=== PATIENT | male | born 1960 | race Caucasian/White ===

== ENCOUNTER 2017-10-09 21:18 | Emergency (ER) | payer SELFPAY ==
[~2017-10-09] VITALS: Ht 190.5 cm; Wt 98.0 kg
[2017-10-09 21:21] VITALS: BP 140/93; PULSE 82; RESP 16; TEMP 97.5; O2SAT 98
[2017-10-09] MEDS ORDERED: [UNRECOGNIZED DRUG - REMARK] PO (21:28)
[2017-10-09] MEDS ORDERED: PSEU30TA82 PO (21:28)
[2017-10-09] MEDS ORDERED: otc (21:53)
[2017-10-09] MEDS ORDERED: SODIUM CHLOR 0.9% 1000 ML INJ 1,000 ML IV SCH (21:54)
--- NOTE | 2017-10-09 21:57 | PD ---
HPI Chief Complaint: Abdominal Pain Time Seen by Provider: 21:49 Travel History International Travel<30 days: No Contact w/Intl Traveler<30days: No Traveled to known affect area: No History of Present Illness HPI 57-year-old male presents to the emergency department for evaluation of low abdominal pain that started approximate 5 hours ago. Patient rates the pain 9/ 10, sharp without radiation. He states he had this exact pain once before in the past it was when he took Sudafed and [id number] weight loss pills together. He took those again today together and started with the abdominal pain. He denies any fevers or chills. No chest pain or shortness of breath. He reports nausea, no vomiting. No diarrhea or constipation. No blood in his stool. He reports no chronic medical problems. He appears well on exam. Moderate severity. No exacerbating or alleviating factors. PFSH Past Medical History Medical History: Denies Significant Hx Diminished Hearing: No Tetanus Vaccination: < 5 Years Influenza Vaccination: No Past Surgical History Body Medical Devices: ? metal right hand Social History Alcohol Use: No Tobacco Use: Yes (occasional cigars ) Substance Use: No Allergies-Medications (Allergen,Severity, Reaction): Coded Allergies: No Known Allergies (Unverified , 10/09/17) Reported Meds & Prescriptions Reported Meds & Active Scripts Active Reported [otc] Sudafed (Pseudoephedrine HCl) 30 Mg Tablet 10 Tab PO BID Review of Systems Except as stated in HPI: all other systems reviewed are Neg Physical Exam Narrative GENERAL: Well-nourished, well-developed male patient, ambulatory. Afebrile. SKIN: Focused skin assessment warm/dry. HEAD: Normocephalic. Atraumatic. EYES: No scleral icterus. No injection or drainage. NECK: Supple, trachea midline. No JVD or lymphadenopathy. CARDIOVASCULAR: Regular rate and rhythm without murmurs, gallops, or rubs. RESPIRATORY: Breath sounds equal bilaterally. No accessory muscle use. Lungs sounds are clear to auscultation. GASTROINTESTINAL: Abdomen soft, non-tender, nondistended. MUSCULOSKELETAL: No cyanosis, or edema. BACK: Nontender without obvious deformity. No CVA tenderness. Data Data Last Documented VS Vital Signs Date Time Temp Pulse Resp B/P (MAP) Pulse Ox O2 Delivery O2 Flow Rate FiO2 10/09/17 22:21 99 Room Air 10/09/17 21:21 97.5 82 16 Orders Orders Complete Blood Count With Diff (10/09/17 21:54) Comprehensive Metabolic Panel (10/09/17 21:54) Lipase (10/09/17 21:54) Urinalysis - C+S If Indicated (10/09/17 21:54) Iv Access Insert/Monitor (10/09/17 21:54) Ecg Monitoring (10/09/17 21:54) Oximetry (10/09/17 21:54) Ondansetron Inj (Zofran Inj) (10/09/17 22:00) Sodium Chlor 0.9% 1000 Ml Inj (Ns 1000 M (10/09/17 21:54) Sodium Chloride 0.9% Flush (Ns Flush) (10/09/17 22:00) Ketorolac Inj (Toradol Inj) (10/09/17 22:00) Labs Laboratory Tests Test 10/09/17 22:05 10/09/17 22:31 White Blood Count 10.7 TH/MM3 Red Blood Count 4.77 MIL/MM3 Hemoglobin 15.1 GM/DL Hematocrit 44.3 % Mean Corpuscular Volume 92.9 FL Mean Corpuscular Hemoglobin 31.7 PG Mean Corpuscular Hemoglobin Concent 34.2 % Red Cell Distribution Width 14.3 % Platelet Count 225 TH/MM3 Mean Platelet Volume 7.4 FL Neutrophils (%) (Auto) 73.7 % Lymphocytes (%) (Auto) 15.5 % Monocytes (%) (Auto) 8.6 % Eosinophils (%) (Auto) 1.6 % Basophils (%) (Auto) 0.6 % Neutrophils # (Auto) 7.9 TH/MM3 Lymphocytes # (Auto) 1.7 TH/MM3 Monocytes # (Auto) 0.9 TH/MM3 Eosinophils # (Auto) 0.2 TH/MM3 Basophils # (Auto) 0.1 TH/MM3 CBC Comment DIFF FINAL Differential Comment Blood Urea Nitrogen 23 MG/DL Creatinine 1.28 MG/DL Random Glucose 102 MG/DL Total Protein 8.0 GM/DL Albumin 4.3 GM/DL Calcium Level 8.8 MG/DL Alkaline Phosphatase 67 U/L Aspartate Amino Transf (AST/SGOT) 24 U/L Alanine Aminotransferase (ALT/SGPT) 26 U/L Total Bilirubin 0.4 MG/DL Sodium Level 140 MEQ/L Potassium Level 3.8 MEQ/L Chloride Level 102 MEQ/L Carbon Dioxide Level 31.2 MEQ/L Anion Gap 7 MEQ/L Estimat Glomerular Filtration Rate 58 ML/MIN Lipase 98 U/L [facility] Medical Decision Making Medical Screen Exam Complete: Yes Emergency Medical Condition: Yes Medical Record Reviewed: Yes Differential Diagnosis Gastritis versus gastroenteritis versus diverticulitis versus UTI Narrative Course 57-year-old male presents to the emergency department for evaluation of abdominal pain that started possibly 5 hours ago. Abdominal exam is benign. IV access established. CBC, CMP, lipase, UA are ordered and pending. Patient is given normal saline 1 L IV bolus, Toradol 30 mg IV, Zofran 4 mg IV. CBC shows no acute abnormality. CMP, lipase, UA are pending. My attending physician, Dr. Watson, will resume care and disposition of patient. Talya Maddox Oct 09, 2017 21:57
[2017-10-09] MEDS ORDERED: KETOROLAC TROMETHAMINE 30 MG/ML (IVP) VIAL IVP ONE (22:00)
[2017-10-09] MEDS ORDERED: SODIUM CHLORIDE 0.9% FLUSH 10 ML FLUSH IV FLUSH PRN (22:00)
[2017-10-09] MEDS ORDERED: ONDANSETRON HCL 4 MG/2 ML VIAL IVP ONE (22:00)
[2017-10-09 22:21] VITALS: O2SAT 99
[2017-10-09 22:48] LABS: AUTOMATED NEUTROPHIL # 7.9 TH/MM3 (1.8-7.7); BASOPHIL # 0.1 TH/MM3 (0-0.2); BASOPHIL % 0.6 % (0.0-2.0); EOSINOPHIL # 0.2 TH/MM3 (0-0.4); EOSINOPHIL % 1.6 % (0.0-4.0); HEMATOCRIT 44.3 % (39.0-51.0); HEMOGLOBIN 15.1 GM/DL (13.0-17.0); LYMPH % 15.5 % (9.0-44.0); LYMPHOCYTE # 1.7 TH/MM3 (1.0-4.8); MEAN CELL VOLUME 92.9 FL (80.0-100.0); MEAN CORPUSCULAR HEMOGLOBIN 31.7 PG (27.0-34.0); MEAN CORPUSCULAR HGB CONC 34.2 % (32.0-36.0); MEAN PLATELET VOLUME 7.4 FL (7.0-11.0); MONO % 8.6 % (0.0-8.0); MONOCYTE # 0.9 TH/MM3 (0-0.9); NEUT % 73.7 % (16.0-70.0); PLATELET COUNT 225 TH/MM3 (150-450); RED BLOOD COUNT 4.77 MIL/MM3 (4.50-5.90); RED CELL DISTRIBUTION WIDTH 14.3 % (11.6-17.2); WHITE BLOOD COUNT 10.7 TH/MM3 (4.0-11.0)
[2017-10-09 23:03] LABS: ALBUMIN 4.3 GM/DL (3.4-5.0); ALT (GPT) 26 U/L (12-78); AST (GOT) 24 U/L (15-37); BICARBONATE 31.2 MEQ/L (21.0-32.0); BLOOD UREA NITROGEN 23 MG/DL (7-18); CALCIUM 8.8 MG/DL (8.5-10.1); CHLORIDE 102 MEQ/L (98-107); CREATININE 1.28 MG/DL (0.60-1.30); GLOMERULAR FILTRATION RATE 58 ML/MIN (>89); GLUCOSE,RANDOM 102 MG/DL (74-106); LIPASE 98 U/L (73-393); SODIUM (NA) 140 MEQ/L (136-145)
[2017-10-09 23:06] LABS: ALKALINE PHOSPHATASE 67 U/L (45-117); TOTAL BILIRUBIN ADULT 0.4 MG/DL (0.2-1.0)
[2017-10-09 23:13] LABS: BILIRUBIN, URINE NEG (NEG); BLOOD, URINE NEG (NEG); GLUCOSE,URINE NEG (NEG); KETONE, URINE NEG (NEG); NITRITE,URINE NEG (NEG); PH, URINE 6.5 (5.0-8.5); URINE COLOR LIGHT-YELLOW (YELLW/STRAW); URINE LEUKOCYTE ESTERASE NEG (NEG)
--- NOTE | 2017-10-09 23:54 | PD ---
Data Data Last Documented VS Vital Signs Date Time Temp Pulse Resp B/P (MAP) Pulse Ox O2 Delivery O2 Flow Rate FiO2 10/09/17 22:21 99 Room Air 10/09/17 21:21 97.5 82 16 Orders Orders Complete Blood Count With Diff (10/09/17 21:54) Comprehensive Metabolic Panel (10/09/17 21:54) Lipase (10/09/17 21:54) Urinalysis - C+S If Indicated (10/09/17 21:54) Iv Access Insert/Monitor (10/09/17 21:54) Ecg Monitoring (10/09/17 21:54) Oximetry (10/09/17 21:54) Ondansetron Inj (Zofran Inj) (10/09/17 22:00) Sodium Chlor 0.9% 1000 Ml Inj (Ns 1000 M (10/09/17 21:54) Sodium Chloride 0.9% Flush (Ns Flush) (10/09/17 22:00) Ketorolac Inj (Toradol Inj) (10/09/17 22:00) Labs Laboratory Tests Test 10/09/17 22:05 10/09/17 22:31 White Blood Count 10.7 TH/MM3 Red Blood Count 4.77 MIL/MM3 Hemoglobin 15.1 GM/DL Hematocrit 44.3 % Mean Corpuscular Volume 92.9 FL Mean Corpuscular Hemoglobin 31.7 PG Mean Corpuscular Hemoglobin Concent 34.2 % Red Cell Distribution Width 14.3 % Platelet Count 225 TH/MM3 Mean Platelet Volume 7.4 FL Neutrophils (%) (Auto) 73.7 % Lymphocytes (%) (Auto) 15.5 % Monocytes (%) (Auto) 8.6 % Eosinophils (%) (Auto) 1.6 % Basophils (%) (Auto) 0.6 % Neutrophils # (Auto) 7.9 TH/MM3 Lymphocytes # (Auto) 1.7 TH/MM3 Monocytes # (Auto) 0.9 TH/MM3 Eosinophils # (Auto) 0.2 TH/MM3 Basophils # (Auto) 0.1 TH/MM3 CBC Comment DIFF FINAL Differential Comment Blood Urea Nitrogen 23 MG/DL Creatinine 1.28 MG/DL Random Glucose 102 MG/DL Total Protein 8.0 GM/DL Albumin 4.3 GM/DL Calcium Level 8.8 MG/DL Alkaline Phosphatase 67 U/L Aspartate Amino Transf (AST/SGOT) 24 U/L Alanine Aminotransferase (ALT/SGPT) 26 U/L Total Bilirubin 0.4 MG/DL Sodium Level 140 MEQ/L Potassium Level 3.8 MEQ/L Chloride Level 102 MEQ/L Carbon Dioxide Level 31.2 MEQ/L Anion Gap 7 MEQ/L Estimat Glomerular Filtration Rate 58 ML/MIN Lipase 98 U/L Urine Color LIGHT-YELLOW Urine Turbidity CLEAR Urine pH 6.5 Urine Specific [place] 1.017 Urine Protein NEG mg/dL Urine Glucose (UA) NEG mg/dL Urine Ketones NEG mg/dL Urine Occult Blood NEG Urine Nitrite NEG Urine Bilirubin NEG Urine Urobilinogen LESS THAN 2.0 MG/DL Urine Leukocyte Esterase NEG Microscopic Urinalysis Comment CULT NOT INDICATED MDM Supervised Visit with LORRAINE: Yes Narrative Course The history, exam, and medical decision-making in the associated mid-level provider note were completed with my assistance. I reviewed and agree with the findings presented. I attest that I had a [id number] encounter with the patient on the same day, and personally performed and documented my assessment and findings in the medical record. *My assessment and Findings: 57-year-old man, abdominal pain, attributed to medications that he took. Benign exam. Repeat exam still benign. Labs unremarkable. Pain significantly diminished. Recommend outpatient follow-up. Diagnosis Primary Impression: Abdominal pain Additional Instruction: return to the emergency department for any new or worsening symptoms. Med/Other Pt SpecificInfo: No Change to Meds Disposition: 01 DISCHARGE HOME Condition: Stable Dl Watson MD Oct 09, 2017 23:54
[2017-10-11] MEDS ORDERED: DICY10 PO (08:11)
[2017-10-11] MEDS ORDERED: MIRA3350 PO (08:11)
== END 2017-10-10 00:20 | disposition home or self-care (01) ==
LOC: NEPE 21:18
DX: R10.30 Lower abdominal pain, unspecified (principal); R11.0 Nausea; F17.290 Nicotine dependence, other tobacco product, uncomplicated
CPT/HCPCS: 80053; 81001; 83690; 85025; 96361; 96374; 96375; 99284; J1885; J2405; J7030

== ENCOUNTER 2017-10-11 06:49 | Emergency (ER) | payer SELFPAY ==
[~2017-10-11] VITALS: Ht 190.5 cm; Wt 100.0 kg
[~2017-10-11 06:49] MED LIST: PSEU30TA82 PO; [UNRECOGNIZED DRUG - REMARK] PO; otc
[2017-10-11 06:50] VITALS: BP 165/96; PULSE 86; RESP 18; TEMP 98; O2SAT 96
[2017-10-11] MEDS ORDERED: SODIUM CHLOR 0.9% 1000 ML INJ 1,000 ML IV ONE (07:15)
[2017-10-11] MEDS ORDERED: KETOROLAC TROMETHAMINE 30 MG/ML (IVP) VIAL IV PUSH ONE (07:15)
[2017-10-11] MEDS ORDERED: SODIUM CHLORIDE 0.9% FLUSH 10 ML FLUSH IVF PRN (07:15)
[2017-10-11] MEDS ORDERED: SODIUM CHLORID 0.9% 500 ML INJ 500 ML IV ONE (07:15)
--- NOTE | 2017-10-11 07:20 | PD ---
HPI Chief Complaint: Abdominal Pain Time Seen by Provider: 06:59 Travel History International Travel<30 days: No Contact w/Intl Traveler<30days: No Traveled to known affect area: No History of Present Illness HPI Patient is a 57-year-old male presents emergency department for second evaluation of abdominal pain. Patient states he took Sudafed and diuretics an attempt for weight loss a few days ago, he has not taken that medicine in some time. He states that the abdominal pain was in the lower quadrants previously but now has moved to the left upper quadrant. He states the pain is colicky, intermittent, severe at times. Started about 2:00 this morning and he tried to bear with it at home taking some Tums without any relief. Patient did have labs on the of this month showing no abnormality, was discharged home after Toradol relieved his pain. He denies any chest pain shortness of breath diarrhea constipation dysuria blood in the stool. Denies any nausea. PFSH Past Medical History Diminished Hearing: No Past Surgical History Body Medical Devices: ? metal right hand Social History Alcohol Use: Yes Tobacco Use: Yes (occasional cigars ) Substance Use: No Allergies-Medications (Allergen,Severity, Reaction): Coded Allergies: No Known Allergies (Unverified , 10/11/17) Reported Meds & Prescriptions Reported Meds & Active Scripts Active Bentyl (Dicyclomine HCl) 10 Mg Cap 10 Mg PO TID PRN Miralax Powder (Polyethylene Glycol 3350 Powder) 17 Gm Powd 17 Gm PO DAILY 7 Days Mix and dissolve one measuring cap-ful (17 grams) in water or juice. Reported [otc] Sudafed (Pseudoephedrine HCl) 30 Mg Tablet 10 Tab PO BID Review of Systems Except as stated in HPI: all other systems reviewed are Neg Physical Exam Narrative GENERAL: Well-developed, uncomfortable but nontoxic appearance. SKIN: Focused skin assessment warm/trace amount of sweat noted on his chin. Otherwise dry. HEAD: Atraumatic. Normocephalic. EYES: Pupils equal and round. No scleral icterus. No injection or drainage. ENT: No nasal bleeding or discharge. Mucous membranes pink and moist. NECK: Trachea midline. No JVD. CARDIOVASCULAR: Regular rate and rhythm. No murmur appreciated. No murmurs gallops or rubs RESPIRATORY: No accessory muscle use. Clear to auscultation. Breath sounds equal bilaterally. GASTROINTESTINAL: Abdomen soft, non-tender, nondistended. Hepatic and splenic margins not palpable. No rebound no percussive tenderness. MUSCULOSKELETAL: No obvious deformities. No clubbing. No cyanosis. No edema. NEUROLOGICAL: Awake and alert. No obvious cranial nerve deficits. Motor grossly within normal limits. Normal speech. PSYCHIATRIC: Appropriate mood and affect; insight and judgment normal. Data Data Last Documented VS Vital Signs Date Time Temp Pulse Resp B/P (MAP) Pulse Ox O2 Delivery O2 Flow Rate FiO2 10/11/17 09:37 10/11/17 07:21 97 Room Air 10/11/17 06:50 98.0 86 18 Orders Orders Electrocardiogram (10/11/17 07:07) Complete Blood Count With Diff (10/11/17 07:07) Comprehensive Metabolic Panel (10/11/17 07:07) Magnesium (Mg) (10/11/17 07:07) Prothrombin Time / Inr (Pt) (10/11/17 07:07) Act Partial Throm Time (Ptt) (10/11/17 07:07) Troponin I (10/11/17 07:07) Chest, Single Ap (10/11/17 07:07) Ecg Monitoring (10/11/17 07:07) Iv Access Insert/Monitor (10/11/17 07:07) Oximetry (10/11/17 07:07) Oxygen Administration (10/11/17 07:07) Sodium Chloride 0.9% Flush (Ns Flush) (10/11/17 07:15) Sodium Chlorid 0.9% 500 Ml Inj (Ns 500 M (10/11/17 07:15) Ketorolac Inj (Toradol Inj) (10/11/17 07:15) Ct Abd/Pel W Iv Contrast(Rout) (10/11/17 ) Sodium Chlor 0.9% 1000 Ml Inj (Ns 1000 M (10/11/17 07:15) Iohexol 350 Inj (Omnipaque 350 Inj) (10/11/17 07:37) Dicyclomine (Bentyl) (10/11/17 08:00) Ed Discharge Order (10/11/17 08:15) Labs Laboratory Tests Test 10/11/17 07:10 White Blood Count 12.4 TH/MM3 Red Blood Count 4.47 MIL/MM3 Hemoglobin 14.5 GM/DL Hematocrit 41.3 % Mean Corpuscular Volume 92.4 FL Mean Corpuscular Hemoglobin 32.4 PG Mean Corpuscular Hemoglobin Concent 35.1 % Red Cell Distribution Width 13.8 % Platelet Count 190 TH/MM3 Mean Platelet Volume 7.2 FL Neutrophils (%) (Auto) 79.7 % Lymphocytes (%) (Auto) 9.5 % Monocytes (%) (Auto) 8.7 % Eosinophils (%) (Auto) 1.6 % Basophils (%) (Auto) 0.5 % Neutrophils # (Auto) 9.9 TH/MM3 Lymphocytes # (Auto) 1.2 TH/MM3 Monocytes # (Auto) 1.1 TH/MM3 Eosinophils # (Auto) 0.2 TH/MM3 Basophils # (Auto) 0.1 TH/MM3 CBC Comment DIFF FINAL Differential Comment Prothrombin Time 9.9 SEC Prothromb Time International Ratio 1.0 RATIO Activated Partial Thromboplast Time 30.6 SEC Blood Urea Nitrogen 19 MG/DL Creatinine 1.47 MG/DL Random Glucose 111 MG/DL Total Protein 7.4 GM/DL Albumin 3.7 GM/DL Calcium Level 8.8 MG/DL Magnesium Level 2.4 MG/DL Alkaline Phosphatase 68 U/L Aspartate Amino Transf (AST/SGOT) 21 U/L Alanine Aminotransferase (ALT/SGPT) 20 U/L Total Bilirubin 0.4 MG/DL Sodium Level 139 MEQ/L Potassium Level 4.0 MEQ/L Chloride Level 105 MEQ/L Carbon Dioxide Level 29.3 MEQ/L Anion Gap 5 MEQ/L Estimat Glomerular Filtration Rate 49 ML/MIN Troponin I LESS THAN 0.02 NG/ML MDM Medical Decision Making Medical Screen Exam Complete: Yes Emergency Medical Condition: Yes Differential Diagnosis Gastritis, gastritis, constipation, ACS unlikely, MA likely, pancreatitis. Narrative Course Patient roomed in emergency department, basic labs are reassuring, creatinine 1.4 but on last check was 1.2, abdomen is benign given his repeat presentations leading to CAT scan is indicated at this time, CAT scan shows no acute abnormality, as fair amount of stool burden may be contributed and his symptoms but I informed him that no definitive cause of his abdominal pain is been isolated. He was given Toradol and Bentyl, sleeping soundly on revisit a staging feel better. Recommended follow-up with his primary care physician as soon as possible discussed return to ED criteria he is stable for discharge. Diagnosis Primary Impression: Abdominal pain Med/Other Pt SpecificInfo: Prescription(s) given Scripts Dicyclomine (Bentyl) 10 Mg Cap 10 MG PO TID Y for Bowel Management, #20 CAP 0 Refills Prov: Constantino Hsu MD 10/11/17 Polyethylene Glycol 3350 Powder (Miralax Powder) 17 Gm Powd 17 GM PO DAILY for Constipation for 7 Days, #1 CAN 0 Refills Mix and dissolve one measuring cap-ful (17 grams) in water or juice. Prov: Constantino Hsu MD 10/11/17 Disposition: 01 DISCHARGE HOME Condition: Stable Constantino Hsu MD Oct 11, 2017 07:20
[2017-10-11 07:21] VITALS: O2SAT 97
[2017-10-11 07:26] LABS: AUTOMATED NEUTROPHIL # 9.9 TH/MM3 (1.8-7.7); BASOPHIL # 0.1 TH/MM3 (0-0.2); BASOPHIL % 0.5 % (0.0-2.0); EOSINOPHIL # 0.2 TH/MM3 (0-0.4); EOSINOPHIL % 1.6 % (0.0-4.0); HEMATOCRIT 41.3 % (39.0-51.0); HEMOGLOBIN 14.5 GM/DL (13.0-17.0); LYMPH % 9.5 % (9.0-44.0); LYMPHOCYTE # 1.2 TH/MM3 (1.0-4.8); MEAN CELL VOLUME 92.4 FL (80.0-100.0); MEAN CORPUSCULAR HEMOGLOBIN 32.4 PG (27.0-34.0); MEAN CORPUSCULAR HGB CONC 35.1 % (32.0-36.0); MEAN PLATELET VOLUME 7.2 FL (7.0-11.0); MONO % 8.7 % (0.0-8.0); MONOCYTE # 1.1 TH/MM3 (0-0.9); NEUT % 79.7 % (16.0-70.0); PLATELET COUNT 190 TH/MM3 (150-450); RED BLOOD COUNT 4.47 MIL/MM3 (4.50-5.90); RED CELL DISTRIBUTION WIDTH 13.8 % (11.6-17.2); WHITE BLOOD COUNT 12.4 TH/MM3 (4.0-11.0)
[2017-10-11 07:34] LABS: PROTHROMBIN TIME - PATIENT 9.9 SEC (9.8-11.6)
[2017-10-11] MEDS ORDERED: IOHEXOL 350 MG/ML 10 ML VIAL (for RAD DIAG) IVCONTRAST ONE (07:37)
[2017-10-11 07:54] LABS: ALBUMIN 3.7 GM/DL (3.4-5.0); ALT (GPT) 20 U/L (12-78); AST (GOT) 21 U/L (15-37); BICARBONATE 29.3 MEQ/L (21.0-32.0); BLOOD UREA NITROGEN 19 MG/DL (7-18); CALCIUM 8.8 MG/DL (8.5-10.1); CHLORIDE 105 MEQ/L (98-107); CREATININE 1.47 MG/DL (0.60-1.30); GLOMERULAR FILTRATION RATE 49 ML/MIN (>89); GLUCOSE,RANDOM 111 MG/DL (74-106); MAGNESIUM 2.4 MG/DL (1.5-2.5); SODIUM (NA) 139 MEQ/L (136-145)
--- NOTE | 2017-10-11 07:54 | RADRPT ---
EXAM DATE/TIME: 10/11/2017 07:34 [facility] COMPARISON: No previous studies available for comparison. INDICATIONS : Bilateral upper quadrant pain. IV CONTRAST: 75 cc Omnipaque 350 (iohexol) IV ORAL CONTRAST: No oral contrast ingested. RADIATION DOSE: 13.68 CTDIvol (mGy) MEDICAL HISTORY : None SURGICAL HISTORY : None. ENCOUNTER: Initial ACUITY: 4 - 6 days PAIN SCALE: 9/10 LOCATION: Bilateral upper quadrant TECHNIQUE: Volumetric scanning of the abdomen and pelvis was performed. Using automated exposure control and ad justment of the mA and/or kV according to patient size, radiation dose was kept as low as reasonably achievable to obtain optimal diagnostic quality images. DICOM format image data is available electro nically for review and comparison. FINDINGS: Lung base is clear. Small lateral hernia Liver, spleen, pancreas unremarkable. Gallbladder prominence. There is no adenopathy. Bilateral renal cysts, largest on the right measuring 4 cm. There is no stone or obstruction There is no ascites Cecum and terminal unremarkable Pelvic contents appear normal CONCLUSION: Nonspecific bowel gas pattern. 4 cm right renal cyst. Otherwise negative. Koko Riggs MD FACR on October 11, 2017 at 7:50 Board Certified Radiologist. This report was verified electronically.
[2017-10-11 07:58] LABS: ALKALINE PHOSPHATASE 68 U/L (45-117); TOTAL BILIRUBIN ADULT 0.4 MG/DL (0.2-1.0); TOTAL PROTEIN 7.4 GM/DL (6.4-8.2); TROPONIN I LESS THAN 0.02 NG/ML (0.02-0.05)
--- NOTE | 2017-10-11 07:58 | RADRPT ---
EXAM DATE/TIME: 10/11/2017 07:42 [facility] COMPARISON: No previous studies available for comparison. INDICATIONS : Chest pain. MEDICAL HISTORY : Abdomen pain since 2A.M. SURGICAL HISTORY : None. ENCOUNTER: Initial ACUITY: 1 day PAIN SCORE: 0/10 LOCATION: Bilateral chest FINDINGS: A single view of the chest demonstrates the lungs to be symmetrically aerated without evidence of mas s, infiltrate or effusion. The cardiomediastinal contours are unremarkable. Osseous structures are intact. CONCLUSION: No acute disease. Kkoo Riggs MD FACR on October 11, 2017 at 7:56 Board Certified Radiologist. This report was verified electronically.
[2017-10-11] MEDS ORDERED: DICYCLOMINE HCL 10 MG CAP PO ONE (08:00)
[2017-10-11] MEDS ORDERED: DICY10 PO (08:11)
[2017-10-11] MEDS ORDERED: MIRA3350 PO (08:11)
--- NOTE | 2017-10-11 08:36 | EKG ---
Date Performed: 10/11/2017 Time Performed: 07:21:24 PTAGE: 57 years EKG: Sinus rhythm BORDERLINE RIGHT AXIS DEVIATION BORDERLINE ECG NO PREVIOUS TRACING DOCTOR: Leonardo Andrade Interpretating Date/Time 10/11/2017 08:36:10
== END 2017-10-11 09:38 | disposition home or self-care (01) ==
LOC: NEPC 06:49
DX: R10.12 Left upper quadrant pain (principal); R94.31 Abnormal electrocardiogram [ECG] [EKG]; Z72.0 Tobacco use
CPT/HCPCS: 71010; 74177; 80053; 83735; 84484; 85025; 85610; 85730; 93005; 96361; 96374; 99285; J1885; J7030; J7040; Q9967